=== PATIENT | male | born 1945 | race Caucasian/White ===

== ENCOUNTER 2017-09-04 15:51 | Emergency (ER) | payer MEDICARE ==
[~2017-09-04] VITALS: Ht 180.3 cm; Wt 117.9 kg
== END 2017-09-04 16:33 | disposition home or self-care (01) ==
LOC: ER 15:51
DX: M72.2 Plantar fascial fibromatosis (principal); Z88.0 Allergy status to penicillin; Z87.891 Personal history of nicotine dependence
CPT/HCPCS: 99282

== ENCOUNTER → 2019-01-01 | Outpatient (CLI) | payer MEDICARE ==
[2019-01-01 11:09] LABS: Body Fluid Crystals NEG (NEGATIVE)
== END ==
LOC: LAB EV 09:52 → LAB SHORT 09:52
PROVIDERS: Physician Assistant
DX: S86.912A Strain of unspecified muscle(s) and tendon(s) at lower leg level, left leg, initial encounter (principal); M25.562 Pain in left knee
CPT/HCPCS: 89060

== ENCOUNTER → 2019-09-08 | Outpatient (CLI) | payer MEDICARE | LOC: LAB EV 16:10 → LAB SHORT 16:10 | DX: N41.9 Inflammatory disease of prostate, unspecified (principal) | CPT/HCPCS: 87077; 87086; 87186 ==

== ENCOUNTER → 2019-10-14 | Outpatient (CLI) | payer MEDICARE | LOC: LAB SHORT 08:30 → LAB 08:30 | DX: N41.9 Inflammatory disease of prostate, unspecified (principal) | CPT/HCPCS: 87086 ==

== ENCOUNTER → 2020-02-04 | Outpatient (CLI) | payer MEDICARE | LOC: LAB SHORT 15:25 → LAB EV 15:25 | DX: R30.9 Painful micturition, unspecified (principal) | CPT/HCPCS: 87086 ==

== ENCOUNTER 2020-02-20 17:11 | Emergency (ER) | payer MEDICARE ==
[~2020-02-20] VITALS: Ht 180.3 cm; Wt 129.3 kg
[2020-02-20 18:15] LABS: BASOPHILS ABSOLUTE AUTO 0.08 K/mm3 (0.00-0.23); BASOPHILS PERCENT AUTO 1 % (0-2); EOSINOPHILS PERCENT AUTO 3 % (0-6); Hematocrit 46.5 % (37.0-53.0); Hemoglobin 15.5 g/dL (13.5-17.5); IMMATURE GRAN ABSOLUTE AUTO 0.06 K/mm3 (0.00-0.10); IMMATURE GRAN PERCENT AUTO 1 % (0-1); LYMPHOCYTES ABSOLUTE AUTO 2.01 K/mm3 (0.84-5.20); LYMPHOCYTES PERCENT AUTO 20 % (21-46); MONOCYTES ABSOLUTE AUTO 0.92 K/mm3 (0.16-1.47); MONOCYTES PERCENT AUTO 9 % (4-13); Mean Corpuscular HGB 29.4 pg (26.0-34.0); Mean Corpuscular HGB Conc 33.3 g/dL (31.5-36.5); Mean Corpuscular Volume 88 fL (80-100); Mean Platelet Volume 11.2 fL (9.1-12.4); NEUTROPHILS ABSOLUTE AUTO 6.56 K/mm3 (1.96-9.15); NEUTROPHILS PERCENT AUTO 66 % (41-73); Platelet Count 195 K/mm3 (150-400); RDW Coefficient Variation 12.3 % (11.7-14.2); RDW Standard Deviation 39.8 fL (35.1-46.3); Red Blood Cell Count 5.27 M/mm3 (4.30-5.90); White Blood Cell Count 9.93 K/mm3 (4.00-11.30)
[2020-02-20 18:41] LABS: Alanine Aminotransfer (ALT/SGP 31 U/L (12-78); Albumin, Blood 3.8 g/dL (3.4-5.0); Alk Phos 78 U/L (50-136); Anion Gap 9 mmol/L (6-16); Aspartate Aminotrans (AST/SGOT 25 U/L (12-37); Bilirubin, Total 0.5 mg/dL (0.1-1.0); Blood Urea Nitrogen 21 mg/dL (8-24); Bun/Creatinine Ratio 17.2 (12.0-20.0); CO2, Blood 23 mmol/L (21-32); Calcium, Blood 9.1 mg/dL (8.5-10.1); Chloride, Blood 107 mmol/L (98-108); Creatinine, Blood 1.22 mg/dL (0.60-1.20); Globulin, Blood 3.7 g/dL (2.2-4.0); Glomerular Filtration Rate >60 (60-); Glucose, Blood 101 mg/dL (70-99); Potassium, Blood 3.7 mmol/L (3.5-5.5); Sodium, Blood 139 mmol/L (136-145); Total Protein, Blood 7.5 g/dL (6.4-8.2)
[2020-02-20 19:55] LABS: Source, Urine Clean Catch
[2020-02-20 20:00] LABS: Bilirubin, Urine Neg (Neg); Blood, Urine 1+ (Neg); Glucose Qualitative, Urine Neg (Neg); Ketones, Urine Neg (Neg); Leukocyte Esterase, Urine Neg (Neg); Nitrite, Urine Neg (Neg); Protein, Urine 1+ (Neg); Urobilinogen, Urine NORM (Normal)
[2020-02-20 20:05] LABS: Appearance, Urine Clear (Clear); Color, Urine Yellow (P-Yellow)
[2020-02-20 20:09] LABS: Bacteria Few /hpf; Mucus Light (0-Heavy); Red Blood Cells, Urine 0-2 /hpf (0-2); Squamous Epithelial Cells Few /hpf (Few); White Blood Cells, Urine 0-2 /hpf (0-5)
== END 2020-02-20 21:10 | disposition home or self-care (01) ==
LOC: ER 17:11
PROVIDERS: Physician Assistant; Student in an Organized Health Care Education/Training Program
DX: R41.3 Other amnesia (principal); Z87.891 Personal history of nicotine dependence; Z88.0 Allergy status to penicillin
CPT/HCPCS: 36415; 70450; 80053; 81001; 82947; 84484; 85025; 99285-25

== ENCOUNTER → 2022-09-01 | Outpatient (CLI) | payer OTHER ==
[2022-09-01 17:56] LABS: Adenovirus F 40/41 Not Detected (NOT DETECT); Astrovirus Detected (NOT DETECT); Campylobacter Sp Not Detected (NOT DETECT); Cryptosporidium Not Detected (NOT DETECT); Cyclospora Cayetanensis Not Detected (NOT DETECT); E. Coli O157 Not Detected (NOT DETECT); Entamoeba Histolytica Not Detected (NOT DETECT); Enteroaggregative E. coli-EAEC Not Detected (NOT DETECT); Enteropathogenic E. coli-EPEC Not Detected (NOT DETECT); Enterotoxigenic E. coli-ETEC Not Detected (NOT DETECT); Giardia Lamblia Not Detected (NOT DETECT); Norovirus GI/GII Not Detected (NOT DETECT); Plesiomonas Shigelloides Not Detected (NOT DETECT); Rotavirus A Not Detected (NOT DETECT); Salmonella Sp Not Detected (NOT DETECT); Sapovirus Not Detected (NOT DETECT); Shiga Toxin-prod E. coli-STEC Not Detected (NOT DETECT); Shigella/Enteroin E. coli-EIEC Not Detected (NOT DETECT); Vibrio Cholerae Not Detected (NOT DETECT); Vibrio Sp Not Detected (NOT DETECT); Yersinia Enterocolitica Not Detected (NOT DETECT)
== END | disposition home or self-care (01) ==
LOC: LAB SHORT 13:50
PROVIDERS: Chiropractor
DX: R19.7 Diarrhea, unspecified (principal)
CPT/HCPCS: 87507

== ENCOUNTER 2024-08-21 16:28 | Inpatient (IN) | payer OTHER ==
[~2024-08-21] VITALS: Ht 180.3 cm; Wt 125.2 kg
[2024-08-21] MEDS ORDERED: Acetaminophen 325 MG TABLET PO ONE (16:55)
[2024-08-21] MEDS ORDERED: CALCIUM 600-VI1 EAC4 PO (17:14)
[2024-08-21] MEDS ORDERED: HYDCHL25 PO (17:15)
[2024-08-21] MEDS ORDERED: Simvastatin20 MG PO (17:15)
[2024-08-21] MEDS ORDERED: LOSA50 PO (17:15)
[2024-08-21] MEDS ORDERED: ASPI81CH PO (17:16)
[2024-08-21] MEDS ORDERED: NS 1,000 ML IV SCH (17:35)
[2024-08-21 18:37] LABS: Appearance, Urine Cloudy (Clear); Bilirubin, Urine Neg (Neg); Blood, Urine 3+ (Neg); Glucose Qualitative, Urine Neg (Neg); Ketones, Urine Neg (Neg); Leukocyte Esterase, Urine 3+ (Neg); Nitrite, Urine Pos (Neg); Protein, Urine 2+ (Neg); Urobilinogen, Urine NORM (Normal); pH, Urine 6.5 (5.0-8.0)
[2024-08-21 18:52] LABS: Color, Urine Pale Yellow (P-Yellow); Red Blood Cells, Urine 0-2 /hpf (0-2); White Blood Cells, Urine TNTC /hpf (0-5)
[2024-08-21 18:53] LABS: Bacteria Many /hpf; Mucus Light (0-Heavy); Squamous Epithelial Cells Few /hpf (Few)
[2024-08-21] MEDS ORDERED: Acetaminophen 325 MG TABLET PO PRN (19:10)
[2024-08-21] MEDS ORDERED: Magnesium Hydroxide Conc 10 ML UDC PO PRN (19:20)
[2024-08-21] MEDS ORDERED: FLU VACC TS2024-25(6MOS UP)/PF 45 MCG/0.5 ML SYRINGE IM SCH (19:20)
[2024-08-21] MEDS ORDERED: CefTRIAXone Sodium 1,000 MG in NS 100 ML IV SCH (20:00)
[2024-08-21 20:50] VITALS: BP 128/82
[2024-08-21] MEDS ORDERED: Lactobacil 2-S.Thermo-Bifido 1 1 Cap PO SCH (21:00)
[2024-08-21] MEDS ORDERED: Atorvastatin 10 MG Tab PO SCH (21:00)
[2024-08-22 04:49] VITALS: BP 106/50
--- NOTE | 2024-08-22 04:50 | NUR ---
0300: PT FOUND UNRESPONSIVE TO VERBAL OR PAINFUL STIMULI. ATTTEMPTED TO RUB CHEST, ELEVATED HOB AND NO RESPONSE. CHARGE NURSE CONTACTED AND RAPID RESPONSE CALLED.
[2024-08-22 05:02] VITALS: BP 126/68
[2024-08-22 05:27] LABS: BASOPHILS ABSOLUTE AUTO 0.07 K/mm3 (0.00-0.23); BASOPHILS PERCENT AUTO 0 % (0-2); EOSINOPHILS ABSOLUTE AUTO 0.01 K/mm3 (0.00-0.68); EOSINOPHILS PERCENT AUTO 0 % (0-6); Hematocrit 37.4 % (37.0-53.0); Hemoglobin 12.9 g/dL (13.5-17.5); IMMATURE GRAN ABSOLUTE AUTO 0.19 K/mm3 (0.00-0.10); IMMATURE GRAN PERCENT AUTO 1 % (0-1); LYMPHOCYTES ABSOLUTE AUTO 1.12 K/mm3 (0.84-5.20); LYMPHOCYTES PERCENT AUTO 6 % (21-46); MONOCYTES ABSOLUTE AUTO 1.58 K/mm3 (0.16-1.47); MONOCYTES PERCENT AUTO 8 % (4-13); Mean Corpuscular HGB 30.4 pg (26.0-34.0); Mean Corpuscular HGB Conc 34.5 g/dL (31.5-36.5); Mean Corpuscular Volume 88 fL (80-100); Mean Platelet Volume 11.8 fL (9.1-12.4); NEUTROPHILS ABSOLUTE AUTO 16.24 K/mm3 (1.96-9.15); NEUTROPHILS PERCENT AUTO 85 % (41-73); Platelet Count 158 K/mm3 (150-400); RDW Coefficient Variation 13.2 % (11.7-14.2); RDW Standard Deviation 42.6 fL (35.1-46.3); Red Blood Cell Count 4.25 M/mm3 (4.30-5.90); White Blood Cell Count 19.21 K/mm3 (4.00-11.30)
[2024-08-22 05:56] LABS: Albumin, Blood 2.9 g/dL (3.4-5.0); Albumin/Globulin Ratio 0.9 (0.8-1.8); Bilirubin, Total 0.8 mg/dL (0.1-1.0); Bun/Creatinine Ratio 15.8 (12.0-20.0); Calcium, Blood 8.4 mg/dL (8.5-10.1); Creatinine, Blood 1.2 mg/dL (0.60-1.20); Globulin, Blood 3.4 g/dL (2.2-4.0); Potassium, Blood 3.2 mmol/L (3.5-5.5); Total Protein, Blood 6.3 g/dL (6.4-8.2)
--- NOTE | 2024-08-22 06:49 | NUR ---
REC'D FROM ER ACCOMPANIED BY STAFF, ORIENTED TO ROOM AND CALL LIGHT SYSTEM. AAOX3, MEMORY LOSS OF UNKNOW ORGION NOTED IN CHART. INDEPENDENT TO BR, USES URINAL IN BR. URINARY FREQUENCY WITH REPORT OF 280 URINE RETENTION IN ER. VSS AND NO ACUTE NEEDS OVERNIGHT.
[2024-08-22 07:27] VITALS: BP 140/73
[2024-08-22] MEDS ORDERED: Losartan Potassium 50 MG Tab PO SCH (09:00)
[2024-08-22] MEDS ORDERED: Enoxaparin 40 MG/0.4 ML SYR SC SCH (09:00)
[2024-08-22] MEDS ORDERED: Calcium/Vit D 600 mg-400 Unit Tab PO SCH (09:00)
[2024-08-22] MEDS ORDERED: HydroCHLOROthiazide 25 mg Tab PO SCH (09:00)
[2024-08-22] MEDS ORDERED: Aspirin 81 MG Chew PO SCH (09:00)
--- NOTE | 2024-08-22 09:00 | NUR ---
Pt laying in bed at bedside, a/ox4, pleasant and coopertive with care, follows commands well, denies pain, states he's doing ok, but not voiding well, does not feel like his bladder is full, but is trying to void anyway and only a small amount at a time, lungs are clear but dim t/o, resp even and unlabored, no cough noted, hrr, on r/a, hrr, mumur noted, no edema noted, ppp+2, cap refill <3 sec, vs stable, afebrile, piv to rac site is clear and patent, btx4, abd flat soft nontneder, voids via urinal, skin c/w/d, hollie mai, call light in reach.
[2024-08-22] MEDS ORDERED: Potassium Chloride 20 MEQ TabCR PO ONE (09:15)
[2024-08-22 15:16] VITALS: BP 128/63
[2024-08-22] MEDS ORDERED: NS 250 ML IV PRN (16:45)
--- NOTE | 2024-08-22 18:38 | NUR ---
pt has been sleeping most of the day, states he's feeling a bit better, no acute changes this shift. call light in reach.
[2024-08-22 19:19] VITALS: BP 135/58
--- NOTE | 2024-08-23 02:57 | NUR ---
SHIFT SUMMARY A&0X4 WITH SOME FORGETFULNESS NOTED, AFFECT PLEASANT, STATED THAT FEELS BETTER OVERALL HOWEVER STILL HAVING URINARY SX SUCH BURNING, FREQUENCY AND HESITANCY WELL VOIDING ONLY SMALL AMOUNTS. VOIDS IN BR INDEPENDENTLY SO REQUESTED HE USE URINAL WITH NEXT VOID SO URINE CHARACTERISTICS CAN BE ASSESSED/MEASURED FOLLOWED BY A BLADDER SCAN HOWEVER HE FORGOT TO. AFEBRILE & DENIES ANY CHILLS, VSS, TOOK A SHOWER EARLIER IN SHIFT AND TOLERATED. HAS LABS DUE THIS A.M.
[2024-08-23 04:47] VITALS: BP 145/73
[2024-08-23 05:30] LABS: BASOPHILS ABSOLUTE AUTO 0.05 K/mm3 (0.00-0.23); BASOPHILS PERCENT AUTO 0 % (0-2); EOSINOPHILS ABSOLUTE AUTO 0.05 K/mm3 (0.00-0.68); EOSINOPHILS PERCENT AUTO 0 % (0-6); Hematocrit 37.3 % (37.0-53.0); Hemoglobin 12.8 g/dL (13.5-17.5); IMMATURE GRAN ABSOLUTE AUTO 0.13 K/mm3 (0.00-0.10); IMMATURE GRAN PERCENT AUTO 1 % (0-1); LYMPHOCYTES ABSOLUTE AUTO 1.41 K/mm3 (0.84-5.20); LYMPHOCYTES PERCENT AUTO 11 % (21-46); MONOCYTES ABSOLUTE AUTO 1.16 K/mm3 (0.16-1.47); MONOCYTES PERCENT AUTO 9 % (4-13); Mean Corpuscular HGB 30.1 pg (26.0-34.0); Mean Corpuscular HGB Conc 34.3 g/dL (31.5-36.5); Mean Corpuscular Volume 88 fL (80-100); Mean Platelet Volume 11.6 fL (9.1-12.4); NEUTROPHILS PERCENT AUTO 78 % (41-73); Platelet Count 136 K/mm3 (150-400); RDW Standard Deviation 41.4 fL (35.1-46.3); Red Blood Cell Count 4.25 M/mm3 (4.30-5.90)
[2024-08-23 06:11] LABS: Bun/Creatinine Ratio 17.8 (12.0-20.0); Calcium, Blood 8.7 mg/dL (8.5-10.1); Creatinine, Blood 1.29 mg/dL (0.60-1.20); Potassium, Blood 3.3 mmol/L (3.5-5.5)
[2024-08-23 07:05] VITALS: BP 135/62
--- NOTE | 2024-08-23 09:00 | NUR ---
pt laying in bed, sleeps when left undisturbed, a/ox3-4, forgetful, plesasant and cooperative with care, follows commands well, denies pain, lungs are clear but dim t/o, resp even and unlabored, no cough noted, on r/a, hrr, murmur noted, no edema noted, ppp+1, cap refill <3 sec, vs stable, afebrile, piv x2 to rac and lfa, sites are clear and patent, btx4, abd flat soft nontender, voids small amounts freq, skin c/w/d/, maew, hollie, call light in reach.
[2024-08-23] MEDS ORDERED: Potassium Chloride 20 MEQ TabCR PO ONE (09:15)
[2024-08-23] MEDS ORDERED: ACET325 PO (12:14)
[2024-08-23] MEDS ORDERED: VISBIOME 112.51 EACH PO (12:15)
[2024-08-23] MEDS ORDERED: CEPH500 PO (12:16)
[2024-08-23] MEDS ORDERED: TAMS.4ER PO (12:16)
--- NOTE | 2024-08-23 13:30 | NUR ---
pt has been discharged to home, removed both ivs intact, went over discharge instructions with him, he verbalized understanding, new med faxed to his pharmacy. left via wheelchair with his family and filling operator in attendence with all his belongings.
[2024-08-23] MEDS ORDERED: CIPR500 PO (15:39)
== END 2024-08-23 13:07 | disposition home or self-care (01) | DRG 872 ==
LOC: ER 16:28 → MEDS 19:15
PROVIDERS: Family Medicine; Student in an Organized Health Care Education/Training Program; ADMIT Internal Medicine
DX: A41.51 Sepsis due to Escherichia coli [E. coli] (principal); N39.0 Urinary tract infection, site not specified; N40.0 Benign prostatic hyperplasia without lower urinary tract symptoms; I12.9 Hypertensive chronic kidney disease with stage 1 through stage 4 chronic kidney disease, or unspecified chronic kidney disease; N18.30 Chronic kidney disease, stage 3 unspecified; E78.5 Hyperlipidemia, unspecified; E66.9 Obesity, unspecified; Z88.0 Allergy status to penicillin; Z86.73 Personal history of transient ischemic attack (TIA), and cerebral infarction without residual deficits; Z68.37 Body mass index [BMI] 37.0-37.9, adult; Z79.82 Long term (current) use of aspirin; Z79.899 Other long term (current) drug therapy; Z87.891 Personal history of nicotine dependence
CPT/HCPCS: 36415; 51798; 76770; 80048; 80053; 81001; 83605; 85025; 87086; 99285-25; A9270; J0696; J1650; J7030; J7050

== ENCOUNTER → 2024-08-21 | Outpatient (CLI) | payer OTHER ==
[~2024-08-21] MED LIST: ACET325 PO; ASPI81CH PO; CALCIUM 600-VI1 EAC4 PO; CEPH500 PO; CIPR500 PO; HYDCHL25 PO; LOSA50 PO; Simvastatin20 MG PO; TAMS.4ER PO; VISBIOME 112.51 EACH PO
[2024-08-21 15:18] LABS: BASOPHILS ABSOLUTE AUTO 0.06 K/mm3 (0.00-0.23); BASOPHILS PERCENT AUTO 0 % (0-2); EOSINOPHILS ABSOLUTE AUTO 0.05 K/mm3 (0.00-0.68); EOSINOPHILS PERCENT AUTO 0 % (0-6); Hematocrit 44.8 % (37.0-53.0); Hemoglobin 15.1 g/dL (13.5-17.5); IMMATURE GRAN ABSOLUTE AUTO 0.17 K/mm3 (0.00-0.10); IMMATURE GRAN PERCENT AUTO 1 % (0-1); LYMPHOCYTES ABSOLUTE AUTO 0.97 K/mm3 (0.84-5.20); LYMPHOCYTES PERCENT AUTO 4 % (21-46); MONOCYTES ABSOLUTE AUTO 1.51 K/mm3 (0.16-1.47); MONOCYTES PERCENT AUTO 7 % (4-13); Mean Corpuscular HGB 29.8 pg (26.0-34.0); Mean Corpuscular HGB Conc 33.7 g/dL (31.5-36.5); Mean Corpuscular Volume 88 fL (80-100); Mean Platelet Volume 11.3 fL (9.1-12.4); NEUTROPHILS ABSOLUTE AUTO 19.27 K/mm3 (1.96-9.15); NEUTROPHILS PERCENT AUTO 87 % (41-73); Platelet Count 179 K/mm3 (150-400); RDW Coefficient Variation 13.2 % (11.7-14.2); RDW Standard Deviation 42.2 fL (35.1-46.3); Red Blood Cell Count 5.07 M/mm3 (4.30-5.90); White Blood Cell Count 22.03 K/mm3 (4.00-11.30)
[2024-08-21 15:27] LABS: Albumin, Blood 3.8 g/dL (3.4-5.0); Bilirubin, Total 0.7 mg/dL (0.1-1.0); Bun/Creatinine Ratio 13.4 (12.0-20.0); Creatinine, Blood 1.42 mg/dL (0.60-1.20); Globulin, Blood 3.8 g/dL (2.2-4.0); Potassium, Blood 3.9 mmol/L (3.5-5.5); Total Protein, Blood 7.6 g/dL (6.4-8.2)
== END ==
LOC: LAB 15:04 → LAB SHORT 15:04
PROVIDERS: Emergency Medicine
DX: N39.0 Urinary tract infection, site not specified (principal); R30.0 Dysuria; R41.0 Disorientation, unspecified
CPT/HCPCS: 80053; 83605; 85025; 87077; 87086; 87186

== ENCOUNTER → 2025-01-07 | Outpatient (CLI) | payer MEDICARE | LOC: LAB 16:24 → LAB SHORT 16:24 | DX: R30.0 Dysuria (principal) | CPT/HCPCS: 87086 ==

== ENCOUNTER 2025-02-24 11:58 | Day surgery (SDC) | payer MEDICARE ==
[~2025-02-24 11:58] MED LIST changes: +NS 500 ML IV ONE
== END 2025-02-24 12:14 | disposition home or self-care (01) ==
LOC: ORSCSDS 11:58
DX: G56.01 Carpal tunnel syndrome, right upper limb (principal); Z53.9 Procedure and treatment not carried out, unspecified reason
CPT/HCPCS: J7040

== ENCOUNTER 2025-03-03 12:29 | Day surgery (SDC) | payer MEDICARE ==
[~2025-03-03] VITALS: Ht 180.3 cm; Wt 119.2 kg
[~2025-03-03 12:29] MED LIST changes: -NS 500 ML IV ONE
[2025-03-03] MEDS ORDERED: GLUC500 PO (13:42)
[2025-03-03] MEDS ORDERED: [UNRECOGNIZED DRUG - OTHER] PO (13:43)
[2025-03-03] MEDS ORDERED: VITAMIN D325 MC3 PO (13:44)
[2025-03-03] MEDS ORDERED: ALLERCLEAR (13:45)
[2025-03-03] MEDS ORDERED: BESYLATE (13:46)
[2025-03-03] MEDS ORDERED: Midazolam HCl 1MG / ML 2ML Vial ONE ×3 (13:52→14:30)
--- NOTE | 2025-03-03 14:43 | NUR ---
03/03/25 1443 Belen Warren TIME OUT PERFORMED AT BEDSIDE WITH DR RUGGIERO AT 1435 IMMEDIATELY PRIOR TO NERVE BLOCK IN R HAND. VERSED 1MG IV X1 GIVEN AT 1435. NERVE BLOCK STARTED AT 1436 AND ENDED AT 1438. PT TOLERATED PROCEDURE WITHOUT ANY DIFFICULTIES.
[2025-03-03 15:03] VITALS: BP 157/75
--- NOTE | 2025-03-03 15:11 | NUR ---
03/03/25 1511 Alison Barr PT DENIES ANY PAIN, NO NAUSEA. PT ABLE TO TOLERATE FLUIDS WELL AND SNACK--SASKIA DOON COOKIES. PT EDUCATION PROVIDED. ALL QUESTIONS ANSWERS AND CONCERNS ADDRESSED. WCTM. PT PLEASANT AND COOPERATIVE WITH CARE PROVIDED.
== END 2025-03-03 15:27 | disposition home or self-care (01) ==
LOC: ORSCSDS 12:29
PROVIDERS: Orthopaedic Surgery
PROC: 01N54ZZ Release Median Nerve, Percutaneous Endoscopic Approach (ICD-10-PCS; principal; 2025-03-03 14:45)
DX: G56.01 Carpal tunnel syndrome, right upper limb (principal); E78.5 Hyperlipidemia, unspecified; I12.9 Hypertensive chronic kidney disease with stage 1 through stage 4 chronic kidney disease, or unspecified chronic kidney disease; N18.30 Chronic kidney disease, stage 3 unspecified; Z87.891 Personal history of nicotine dependence; Z79.899 Other long term (current) drug therapy
CPT/HCPCS: J2250; J7120